=== PATIENT | female | born 1985 | race African-American/Black ===

== ENCOUNTER 2016-07-15 07:00 | Inpatient (IN) | payer MEDICAID ==
[~2016-07-15] VITALS: Ht 33 cm; Wt 0.5 kg
[~2016-07-15 07:00] MED LIST: FERR-7 PO; PREN-153 OR; PREN-96 PO
[2016-07-15] MEDS ORDERED: FERR-7 PO (07:22)
[2016-07-15] MEDS ORDERED: PREN-96 PO (07:22)
[2016-07-15] MEDS ORDERED: LACT. RINGERS/OXYTOCIN 20UNITS 1,000 ML IV SCH ×2 (07:33→13:31)
[2016-07-15] MEDS ORDERED: LACTATED RINGER'S 1,000 ML IV SCH (07:33)
[2016-07-15] MEDS ORDERED: LIDOCAINE 2%HCL (LOCAL ANESTH.) INJ 20ML MDV IJ ONE (07:45)
[2016-07-15] MEDS ORDERED: PHISODERM TOP SOLN 240ML BTL TOP PRN (07:45)
[2016-07-15] MEDS ORDERED: TERBUTALINE SULFATE 1 MG/ML 1ML VIAL SC ONE ×2 (07:45→13:45)
[2016-07-15] MEDS ORDERED: PENICILLIN G POT 5MIL/D5 50ML 50 ML IV ONE ×2 (07:45→08:04)
[2016-07-15] MEDS ORDERED: PROMETHAZINE HCL 25 MG/ML 1ML IV PRN (07:45)
[2016-07-15] MEDS ORDERED: NALBUPHINE HCL 10 MG/1ml INJECTION IM PRN (07:45)
[2016-07-15 09:16] LABS: Basophils # (auto) 0 uL; Basophils % (auto) 0.4 % (0.0-2.0); Eosinophils # (auto) 0.1 uL; Eosinophils % (auto) 1.3 % (0.0-7.0); Hematocrit 31.9 % (36.0-46.0); Hemoglobin 10.4 g/dL (12.2-16.2); Lymphocytes # (auto) 1.2 uL; Mean Corpuscular Hemoglobin 29.2 pg (28.0-32.0); Mean Corpuscular Hgb Conc. 32.8 g/dL (32.0-36.0); Mean Platelet Volume 10.4 fL (7.4-10.4); Monocytes # (auto) 0.6 uL; Monocytes % (auto) 10.1 % (0.0-12.0); Neutrophils # (auto) 4.1 uL; Neutrophils % (auto) 68.2 % (37.0-80.0); Platelet Count (auto) 182 10^3/uL (140-450); Red Cell Distribution Width 16.9 % (11.6-16.0); White Blood Cell 6.1 10^3/uL (4.4-10.8)
[2016-07-15 09:34] LABS: INR 0.97 (0.9-1.15); Partial Thromboplastin Time 29.4 sec (22.64-33.71)
[2016-07-15 09:41] LABS: Albumin 2.5 g/dL (3.4-5.0); BUN/Creatinine Ratio 19.1; Bilirubin, Total 0.2 mg/dL (0.2-1.0); Calcium 9.1 mg/dL (8.5-10.1); Potassium 3.8 mmol/L (3.5-5.1); Total Protein 7.2 g/dL (6.4-8.2)
[2016-07-15 09:59] LABS: Urine Bilirubin Negative (Negative); Urine Blood Negative /uL (Negative); Urine Color Yellow (Yellow); Urine Glucose Normal (Normal); Urine Ketone Negative (Negative); Urine Mucus FEW (None Seen); Urine Nitrite Negative (Negative); Urine RBC 1 /hpf (0 - 4); Urine Squamous Epithelial Cell MANY /hpf (<5); Urine Urobilinogen Normal (Negative)
[2016-07-15] MEDS: PENICILLIN G POTASSIUM 2,500,000 UNITS in D5W 5% 50 ML IV SCH ×3 (12:43→20:00)
[2016-07-15] MEDS ORDERED: ACETAMINOPHEN 325 MG TAB PO PRN (15:45)
[2016-07-15] MEDS ORDERED: IBUPROFEN 600 MG TAB PO PRN (15:45)
[2016-07-15] MEDS: DERMOPLAST 60ML BOTTLE TOP PRN ×2 (16:00→19:45)
[2016-07-15] MEDS: WITCH HAZEL-GLYCERIN PAD TOP PRN ×2 (16:00→19:46)
[2016-07-15 16:40] VITALS: BP 115/53
[2016-07-15] MEDS ORDERED: DOCUSATE CALCIUM 240 MG CAP PO SCH (17:00)
[2016-07-15 18:52] VITALS: BP 120/56
[2016-07-15 23:00] VITALS: BP 109/52
[2016-07-16 03:00] VITALS: BP 111/59
[2016-07-16 06:40] VITALS: BP 122/66
[2016-07-16 11:00] VITALS: BP 98/52
[2016-07-16 15:00] VITALS: BP 115/59
== END 2016-07-16 17:20 | disposition home or self-care (01) | DRG 560 ==
LOC: LDRP 07:00
PROVIDERS: ADMIT Specialist; ATTEND Specialist
PROC: 10E0XZZ Delivery of Products of Conception, External Approach (ICD-10-PCS; principal; 2016-07-15)
PROC: 3E0P7GC Introduction of Other Therapeutic Substance into Female Reproductive, Via Natural or Artificial Opening (ICD-10-PCS; 2016-07-15)
DX: O48.0 Post-term pregnancy (principal); O24.420 Gestational diabetes mellitus in childbirth, diet controlled; O99.824 Streptococcus B carrier state complicating childbirth; Z37.0 Single live birth; Z3A.40 40 weeks gestation of pregnancy; Z88.2 Allergy status to sulfonamides; Z91.040 Latex allergy status
CPT/HCPCS: 36415; 59025; 59409; 80053; 81001; 81002; 85025; 85610; 85730; 86850; 86900; 86901; 96365; 96366; 96372; 96374; J2540; J2590; J7060

== ENCOUNTER 2017-02-27 09:17 | Emergency (ER) | payer MEDICAID ==
[~2017-02-27] VITALS: Ht 160 cm; Wt 81.2 kg
[2017-02-27 09:23] VITALS: BP 143/85
[2017-02-27] MEDS ORDERED: IBUPROFEN 800 MG TAB PO ONE (10:00)
== END 2017-02-27 10:13 | disposition home or self-care (01) ==
LOC: ER 09:17
DX: S90.32XA Contusion of left foot, initial encounter (principal); W20.8XXA Other cause of strike by thrown, projected or falling object, initial encounter; Z91.040 Latex allergy status; Z91.013 Allergy to seafood; Y93.89 Activity, other specified; Y92.89 Other specified places as the place of occurrence of the external cause; Y99.2 Volunteer activity
CPT/HCPCS: 73630

== ENCOUNTER 2020-03-06 09:21 | Observation (INO) | payer MEDICAID | END 2020-03-06 11:05 | disposition home or self-care (01) | LOC: LDRP 09:21 | PROVIDERS: ADMIT Specialist; ATTEND Specialist | DX: O99.89 Other specified diseases and conditions complicating pregnancy, childbirth and the puerperium (principal); M54.9 Dorsalgia, unspecified; O62.9 Abnormality of forces of labor, unspecified; O26.892 Other specified pregnancy related conditions, second trimester; M25.512 Pain in left shoulder; R07.89 Other chest pain; Z3A.23 23 weeks gestation of pregnancy | CPT/HCPCS: 59025; 76815; 81002; G0378 ==

== ENCOUNTER 2022-10-14 12:29 | Emergency (ER) | payer MEDICAID ==
[~2022-10-14] VITALS: Ht 160 cm; Wt 87.4 kg
[~2022-10-14 12:29] MED LIST changes: -PREN-153 OR
[2022-10-14 12:49] VITALS: BP 124/66
[2022-10-14] MEDS ORDERED: ONDA-144 PO (13:06)
[2022-10-14] MEDS ORDERED: DOXY10TA OR (13:06)
[2022-10-14] MEDS ORDERED: SODIUM CHLORIDE 0.9% 1,000 ML IV ONE (13:15)
[2022-10-14] MEDS ORDERED: ONDANSETRON HCL 4 MG/2 ML VIAL IV ONE (13:15)
[2022-10-14 13:58] LABS: Basophils # (auto) 0 10 ^3/uL (0-0.2); Basophils % (auto) 0.2 % (0.0-2.0); Eosinophils # (auto) 0.1 10 ^3/uL (0-0.8); Hematocrit 38.9 % (36.0-46.0); Lymphocytes # (auto) 1.1 10 ^3/uL (0.4-5.4); Lymphocytes % (auto) 16.2 % (10.0-50.0); Mean Corpuscular Hemoglobin 30.7 pg (28.0-32.0); Mean Corpuscular Hgb Conc. 33.5 g/dL (32.0-36.0); Mean Corpuscular Volume 91.8 fL (80.0-100.0); Monocytes # (auto) 0.7 10 ^3/uL (0-1.3); Monocytes % (auto) 11.2 % (0.0-12.0); Neutrophils # (auto) 4.8 10 ^3/uL (1.6-8.6); Neutrophils % (auto) 71.4 % (37.0-80.0); Nucleated Red Blood Cells % 0.1 %; Red Blood Cells 4.24 10^6/uL (4.0-5.20); White Blood Cell 6.7 10^3/uL (4.4-10.8)
[2022-10-14 14:10] LABS: Albumin 3.2 g/dL (3.4-5.0); BUN/Creatinine Ratio 12.5 (10.0-20.0); Potassium 3.5 mmol/L (3.5-5.1)
[2022-10-14 14:13] LABS: Bilirubin, Total 0.2 mg/dL (0.2-1.0); Total Protein 8.4 g/dL (6.4-8.2)
[2022-10-14 14:49] LABS: Urine Bacteria NONE SEEN /hpf (None Seen); Urine Blood 1+ /uL (Negative); Urine Mucus FEW (None Seen); Urine WBC 2 /hpf (0 - 5)
== END 2022-10-14 16:00 | disposition home or self-care (01) ==
LOC: ER 12:29
DX: O21.8 Other vomiting complicating pregnancy (principal); R10.2 Pelvic and perineal pain; Z91.013 Allergy to seafood; Z3A.09 9 weeks gestation of pregnancy
CPT/HCPCS: 36415; 80053; 81001; 84702; 85025; J2405

== ENCOUNTER 2023-05-24 07:15 | Inpatient (IN) | payer MEDICAID ==
[~2023-05-24] VITALS: Ht 160 cm; Wt 87.1 kg
[~2023-05-24 07:15] MED LIST changes: +DOXY10TA OR; +ONDA-144 PO
[2023-05-24] MEDS ORDERED: PENICILLIN G POT 5MIL/D5 50ML 50 ML IV ONE ×2 (07:28→07:30)
[2023-05-24] MEDS ORDERED: PHISODERM TOP SOLN 240ML BTL TOP PRN (07:30)
[2023-05-24] MEDS ORDERED: miSOPROStol 100 mcg TAB SL PRN (07:30)
[2023-05-24] MEDS ORDERED: TRANEXAMIC ACID 1,000 MG in SODIUM CHL 0.9% 100 ML IV ONE (07:30)
[2023-05-24] MEDS ORDERED: LIDOCAINE 2%HCL (LOCAL ANESTH.) INJ 20ML MDV IJ PRN (07:30)
[2023-05-24] MEDS ORDERED: LACTATED RINGER'S 1,000 ML IV SCH (07:30)
[2023-05-24] MEDS ORDERED: ACETAMINOPHEN 650 MG RECT SUPP PR PRN (07:30)
[2023-05-24] MEDS ORDERED: LACT. RINGERS/OXYTOCIN 20UNITS 500 ML IV ONE ×4 (07:30→17:00)
[2023-05-24] MEDS ORDERED: PROMETHAZINE HCL 25 MG/ML 1ML IM PRN (07:30)
[2023-05-24] MEDS ORDERED: DERMOPLAST 60ML BOTTLE TOP PRN (07:30)
[2023-05-24] MEDS ORDERED: ONDANSETRON HCL 4 MG/2 ML VIAL IV PRN ×2 (07:30→10:00)
[2023-05-24] MEDS ORDERED: miSOPROStol 100 mcg TAB PR PRN (07:30)
[2023-05-24] MEDS ORDERED: METHYLERGONOVINE MALEATE 0.2 MG/ML AMP IM PRN (07:30)
[2023-05-24] MEDS ORDERED: WITCH HAZEL-GLYCERIN PAD TOP PRN (07:30)
[2023-05-24 08:32] LABS: Basophils # (auto) 0 10 ^3/uL (0-0.2); Basophils % (auto) 0.2 % (0.0-2.0); Eosinophils # (auto) 0.1 10 ^3/uL (0-0.8); Eosinophils % (auto) 0.7 % (0.0-7.0); Hematocrit 35.5 % (36.0-46.0); Hemoglobin 11.6 g/dL (12.2-16.2); Lymphocytes # (auto) 1.2 10 ^3/uL (0.4-5.4); Lymphocytes % (auto) 15.6 % (10.0-50.0); Mean Corpuscular Hemoglobin 30.7 pg (28.0-32.0); Mean Corpuscular Hgb Conc. 32.6 g/dL (32.0-36.0); Monocytes # (auto) 0.6 10 ^3/uL (0-1.3); Monocytes % (auto) 8.1 % (0.0-12.0); Neutrophils % (auto) 75.4 % (37.0-80.0); Nucleated Red Blood Cells % 0.2 %; Red Blood Cells 3.77 10^6/uL (4.0-5.20)
[2023-05-24 08:48] LABS: INR 0.95 (0.9-1.15); Partial Thromboplastin Time 27.1 SEC (24.5-34.5)
[2023-05-24] MEDS ORDERED: MORPHINE SULF PF 5 MG/10 ML VIAL ONE (08:54)
[2023-05-24] MEDS ORDERED: fentaNYL CITRATE 100 MCG/2 ML VL ONE (08:54)
[2023-05-24 09:02] LABS: Alkaline Phosphatase 146 U/L (46-116); Anion Gap 12 (5-15); Aspartate Aminotransferase 15 U/L (13-40); BUN/Creatinine Ratio 12.7 (10.0-20.0); Blood Urea Nitrogen 7 mg/dL (9-23); Calcium 9.3 mg/dL (8.5-10.1); Carbon Dioxide 17 mmol/L (20-30); Chloride 107 mmol/L (98-107); Glucose 111 mg/dL (74-106); Potassium 3.5 mmol/L (3.5-5.1); Sodium 136 mmol/L (136-145)
[2023-05-24 09:03] LABS: Bilirubin, Total 0.4 mg/dL (0.2-1.0); Total Protein 7.2 g/dL (5.7-8.2)
[2023-05-24 09:26] LABS: Alanine Aminotransferase < 9 U/L (7-40)
[2023-05-24] MEDS ORDERED: NALOXONE HCL 0.4 MG/ML VIAL IV PRN (10:00)
[2023-05-24] MEDS ORDERED: diphenhdrAMINE HCL 50 MG/1 ML VL IV PRN (10:00)
[2023-05-24] MEDS ORDERED: NALBUPHINE HCL 10 MG/1ml INJECTION IV ONE (10:00)
[2023-05-24] MEDS ORDERED: ePHEDrine SULFATE 50 MG/ML AMP ONE (10:06)
[2023-05-24 10:44] LABS: Urine Bacteria NONE SEEN /hpf (None Seen); Urine Blood Negative /uL (Negative); Urine Clarity Clear (Clear); Urine Color Yellow (Yellow); Urine Hyaline Cast FEW /lpf (0 - 2); Urine Mucus FEW (None Seen); Urine Protein, UAD TRACE (Negative); Urine Specific Gravity 1.034 (1.001-1.035); Urine Urobilinogen Normal (Negative); Urine WBC 1 /hpf (0 - 5); Urine pH 6.5 (5.0-8.0)
[2023-05-24 10:49] LABS: Amphetamine Screen, Urine Neg (NEGATIVE); Barbiturate Scree,Urine Neg (NEGATIVE); Benzodiazephine Screen, Urine Neg (NEGATIVE); Cocaine Screen, Urine Neg (NEGATIVE)
[2023-05-24 10:50] LABS: Cannabinoid Screen, Urine Neg (NEGATIVE); Opiate Scree,Urine Neg (NEGATIVE); Phencyclidine Screen, Urine Neg (NEGATIVE)
[2023-05-24] MEDS ORDERED: PENICILLIN G POTASSIUM 2,500,000 UNITS in D5W 5% 50 ML IV SCH (11:30)
[2023-05-24] MEDS ORDERED: ONDANSETRON ODT 4 MG TAB PO PRN (16:30)
[2023-05-24] MEDS ORDERED: ACETAMINOPHEN 325 MG TAB PO PRN (16:30)
[2023-05-24] MEDS: IBUPROFEN 800 MG TAB PO SCH (18:00)
[2023-05-24 19:00] VITALS: BP 93/54; PULSE 66; RESP 16; TEMP 97.8; O2SAT 98
[2023-05-24] MEDS ORDERED: DOCUSATE SOD 100 MG CAP PO SCH (22:00)
[2023-05-24 23:00] VITALS: BP 94/59; PULSE 72; RESP 16; TEMP 98; O2SAT 98
[2023-05-25 03:00] VITALS: BP 56/59; PULSE 69; RESP 16; TEMP 98.9; O2SAT 98
[2023-05-25] MEDS: IBUPROFEN 800 MG TAB PO SCH ×3 (06:00→12:00)
[2023-05-25 06:06] LABS: Rubella Antibodies, IgG 3.41 index (Immune >0.99)
[2023-05-25] MEDS ORDERED: IBUP-1455 PO (06:33)
[2023-05-25 06:54] VITALS: BP 96/48; PULSE 77; RESP 18; TEMP 98.4; O2SAT 98
[2023-05-25 08:06] LABS: RPR Non Reactive (Non Reactive)
[2023-05-25 11:18] VITALS: BP 97/67; PULSE 78; RESP 18; TEMP 99.1; O2SAT 98
[2023-05-25 13:00] VITALS: TEMP 98.9
[2023-05-25 15:25] VITALS: BP 98/62; PULSE 82; RESP 18; TEMP 98.7; O2SAT 99
[2023-05-26 19:06] LABS: Treponema pallidum Ab (FTA-Ab) Non Reactive (Non Reactive)
== END 2023-05-25 16:17 | disposition home or self-care (01) | DRG 560 ==
LOC: LDRP 07:15 → UNDOADMIN 07:15 → LDRP 07:26
PROVIDERS: ADMIT Obstetrics & Gynecology; ATTEND Obstetrics & Gynecology
PROC: 10E0XZZ Delivery of Products of Conception, External Approach (ICD-10-PCS; principal; 2023-05-24)
DX: O48.0 Post-term pregnancy (principal); Z37.0 Single live birth; O99.824 Streptococcus B carrier state complicating childbirth; Z3A.41 41 weeks gestation of pregnancy; Z91.040 Latex allergy status; Z91.013 Allergy to seafood
CPT/HCPCS: 36415; 59025; 59409; 62282; 80053; 80307; 81001; 81002; 85025; 85610; 85730; 86592; 86762; 86850; 86900; 86901; 94760; 96360; 96361; 96365; 96366; 96374; G0378; J2540; J2590; J7060